=== PATIENT | male | born 1970 | race Caucasian/White ===

== ENCOUNTER 2016-06-14 17:46 | Emergency (ER) | payer SELFPAY ==
[~2016-06-14] VITALS: Ht 170.2 cm; Wt 72.6 kg
[~2016-06-14 17:46] MED LIST: INSU100V11 SQ; INSU100V7 SQ
--- NOTE | 2016-06-14 17:56 | NUR ---
PT BIB PD TO ER BED 11. POSSIBLE COCAINE OD. PT [employer] W/ BLOOD SUGAR >400. PLACED ON MONITOR. VERBALLY RESPONSIVE. DENIES PAIN. AWAITINGMD EVAL.
--- NOTE | 2016-06-14 18:13 | NUR ---
IV LINE STARTED BLOO DRAWN AND SENT TO LAB.
[2016-06-14] MEDS ORDERED: IV NS 0.9% 1,000 ML ONE (18:14)
[2016-06-14] MEDS ORDERED: IV SET PRIMARY PUMP SET 1 EA INFUS.SET MC ONE (18:14)
[2016-06-14] MEDS ORDERED: INSULIN REGULAR, HUMAN 100 UNIT/ML 10 ML VIAL ONE (18:15)
[2016-06-14] MEDS ORDERED: DEXAMETHASONE SOD PHOSPHATE 10 MG/ML VIAL ONE (18:16)
[2016-06-14] MEDS ORDERED: HYDROCODONE/APAP 10/325MG 1 EA TABLET ONE (18:17)
[2016-06-14 18:18] LABS: BASOPHILS # (AUTO) 0.1 /CMM (0.0-0.2); BASOPHILS % (AUTO) 0.9 % (0.0-2.0); EOSINOPHILS # (AUTO) 0.1 /CMM (0.0-0.7); HEMATOCRIT 48 % (39-51); HEMOGLOBIN 16.7 g/dL (13.5-17.5); LYMPHOCYTES # (AUTO) 1.1 /CMM (0.8-4.8); LYMPHOCYTES % (AUTO) 8.9 % (20.0-44.0); MEAN CORPUSCULAR HEMOGLOBIN 30 PG (26.0-33.0); MEAN CORPUSCULAR HGB CONC 35 g/dl (31.0-36.0); MEAN CORPUSCULAR VOLUME 88 fL (80-96); MONOCYTES # (AUTO) 0.5 /CMM (0.1-1.30); MONOCYTES % (AUTO) 4.6 % (2.0-12.0); NEUTROPHILS # (AUTO) 10.1 /CMM (1.8-8.9); NEUTROPHILS % (AUTO) 84.6 % (43.0-81.0); PLATELET COUNT (AUTO) 266 /CMM (150-450); RDW COEFFICIENT OF VARIATION 11.7 (11.5-15.0); RED BLOOD CELL COUNT(AUTO) 5.48 MIL/uL (4.5-6.0); WHITE BLOOD COUNT (AUTO) 11.9 K/uL (4.3-11.0)
[2016-06-14] MEDS ORDERED: KETOROLAC TROMETHAMINE INJ 30 MG/ML VIAL ONE (18:18)
[2016-06-14] MEDS: IV NS 0.9% 1,000 ML BAG IV ONE (18:23)
[2016-06-14] MEDS: INSULIN REGULAR, HUMAN 100 UNIT/ML 10 ML VIAL IV ONE (18:25)
[2016-06-14 18:34] LABS: ALANINE AMINOTRANSFERASE 28 U/L (12-78); ALKALINE PHOSPHATASE 95 U/L (46-116); ASPARTATE AMINOTRANSFERASE 30 U/L (15-37); BILIRUBIN,DIRECT 0.3 mg/dL (0.0-0.2); BILIRUBIN,TOTAL 1.3 mg/dL (0.2-1.0); CALCIUM, SERUM 9.6 mg/dL (8.5-10.1); CARBON DIOXIDE 28 mmol/L (21-32); CHLORIDE 100 mmol/L (98-107); CREATININE 1.6 mg/dL (0.6-1.3); GFR 47 mL/min (>60); SODIUM SERUM 136 mmol/L (136-145); TOTAL PROTEIN, SERUM 7.8 g/dL (6.4-8.2); UREA NITROGEN, BLOOD 16 mg/dL (7-18)
[2016-06-14 18:36] LABS: ACETAMINOPHEN < 2 ug/ml (10-30); ALCOHOL, BLOOD < 3 mg/dL (0-0); GLUCOSE 427 mg/dL (74-106); SALICYLATE < 2.8 mg/dL (2.8-20.0)
--- NOTE | 2016-06-14 18:36 | NUR ---
FAUSTINO REPORTED 427 BS LEVEL
--- NOTE | 2016-06-14 19:08 | NUR ---
PT STATES READY TO GO HOME. AGITATED AND WANTS TO LEAVE ERMD MADE AWARE. DC IN STABLE CONDITION. [facility]HL DISCONTINUED.
[2016-06-14 19:09] VITALS: BP 132/87
== END 2016-06-14 19:10 | disposition home or self-care (01) ==
LOC: ER 17:47
DX: F14.10 Cocaine abuse, uncomplicated (principal); E11.65 Type 2 diabetes mellitus with hyperglycemia; F10.20 Alcohol dependence, uncomplicated
CPT/HCPCS: 36415; 80048-TC; 80076-TC; 82962-TC; 85025-TC; A4606; G0480; G6039-TC; J1100; J1815; J1885; J7030; Z7610